=== PATIENT | male | born 1985 | race Caucasian/White ===

== ENCOUNTER 2016-10-04 03:30 | Emergency (ER) | payer SELFPAY ==
[~2016-10-04] VITALS: Ht 185.4 cm; Wt 105.0 kg
[~2016-10-04 03:30] MED LIST: Z.0.NO CURRENT MEDS
[2016-10-04 03:31] VITALS: BP 144/78; PULSE 102; RESP 20; TEMP 97.8; O2SAT 96
[2016-10-04] MEDS ORDERED: LIDOCAINE HCL 1% 20 ML VIAL INFIL ONE (03:45)
[2016-10-04] MEDS ORDERED: TETANUS/DIPHTHERIA TOXOID ADULT 0.5 ML VIAL IM ONE (03:45)
--- NOTE | 2016-10-04 03:52 | PD ---
HPI Chief Complaint: Laceration/Skin Injury Time Seen by Provider: 03:49 Travel History International Travel<30 days: No Contact w/Intl Traveler<30days: No Traveled to known affect area: No History of Present Illness HPI 30-year-old [id number] white male presents to emergency department with a laceration to his right mid dorsal forearm. He had tripped going into his house this evening after drinking. He put his hand through the window at the house. He sustained a 3 cm laceration. He states that he has some tickling his fingers diffusely. There is no focality. No weakness. He denies any other injuries. [facility] Past Medical History Medical History: Denies Significant Hx Tetanus Vaccination: > 5 Years Past Surgical History Surgical History: No Previous Surgery Eye Surgery: Yes (orbital) Social History Alcohol Use: Yes (WEEKENDS) Tobacco Use: Yes (2 PPD) Allergies-Medications (Allergen,Severity, Reaction): Coded Allergies: No Known Allergies (Unverified , 10/04/16) Uncoded Allergies: NKA (Allergy, Unknown, 03/14/03) Reported Meds & Prescriptions Reported Meds & Active Scripts Active No Active Prescriptions or Reported Medications Review of Systems Except as stated in HPI: all other systems reviewed are Neg Musculoskeletal: Positive: Pain, No: Myalgias, Arthralgias, Limited ROM, Weakness, Cramping, Edema Neurologic: Positive: Paresthesia, No: Coordination Problem Physical Exam Narrative GENERAL: Well-developed, well-nourished in no apparent distress. Nontoxic appearing. HEAD: Normocephalic, atraumatic. EYES: Pupils equal round and reactive. Extraocular motions intact. No scleral icterus. No injection or drainage. ENT: Nose clear. Throat without erythema, tonsillar hypertrophy or exudate. Uvula midline. Airway patent. NECK: Trachea midline. Supple, nontender, moves head freely. No central bony tenderness or spasm. CARDIOVASCULAR: Regular rate and rhythm without murmurs, gallops, or rubs. RESPIRATORY: Clear to auscultation. Breath sounds equal bilaterally. No wheezes , rales, or rhonchi. GASTROINTESTINAL: Abdomen soft, non-tender, nondistended. No hepato-splenomegaly , or palpable masses. No guarding. EXTREMITIES: No clubbing, cyanosis, or edema. No joint tenderness.There is a 3 cm laceration to the proximal dorsal surface of the right forearm. It does not appear to be a deep injury. I'm able to probe it with my gloved finger and it does not appear to go deeper than a centimeter. He complains of tingling in his fingers which is nondermatomal. He is able to extend his fingers, touch alternating fingers, extend and flex his wrist and he has no sensory changes on the dorsal surface of the hand. BACK: Nontender without deformity. No flank tenderness. NEUROLOGICAL: Awake, alert and oriented x 3 .Cranial nerves grossly intact. Motor and sensory grossly within normal limits. Normal speech. Data Data Last Documented VS Vital Signs Date Time Temp Pulse Resp B/P Pulse Ox O2 Delivery O2 Flow Rate FiO2 10/04/16 03:31 97.8 102 20 144/78 96 Orders Tetanus/Diphtheria Tox Adult (Tetanus/Di (10/04/16 03:45) Lidocaine 1% Inj (Xylocaine 1% Inj) (10/04/16 03:45) MDM Medical Decision Making Medical Screen Exam Complete: Yes Emergency Medical Condition: Yes Medical Record Reviewed: Yes Differential Diagnosis MDM: High Differential diagnoses: Fracture, sprain, strain, dislocation, contusion, neurovascular injury Narrative Course Patient's tetanus status updated. His wounds closed with rupal. Procedures Procedure Narrative LACERATION LOCATION: Left dorsal forearm LENGTH: 3 cm NUMBER OF STITCHES/RUPAL: 3 REPAIR: The area of the laceration was prepped with Betadine and sterilely draped. The laceration was infiltrated with 1% lidocaine. The wound was copiously irrigated and explored without evidence of foreign body, tendon injury or neurovascular injury. The wound was closed using rupal. This was a supple single layer repair. A sterile dressing was applied. The patient was advised to keep the dressing clean and dry. Patient tolerated the procedure well. Diagnosis Primary Impression: Laceration of right forearm Qualified Code: S51.811A - Laceration of right forearm, initial encounter Patient Instructions: General Instructions Additional Instructions: Rest. Elevation. Tylenol and Advil for pain. Daily wound care with soap, water, Neosporin. Sutures out in 10 days. Recheck right a primary care doctor in next 5-7 days. Return to the ER if any problems. Scripts No Active Prescriptions or Reported Meds Disposition: DISCHARGE HOME Condition: Stable Keshav Norris Oct 04, 2016 03:52
[2016-10-04] MEDS ORDERED: LIDOCAINE HCL 1% 30 ML VIAL ONE (03:56)
== END 2016-10-04 04:14 | disposition home or self-care (01) ==
LOC: NETRI 03:30
DX: S51.811A Laceration without foreign body of right forearm, initial encounter (principal); Z23 Encounter for immunization; W18.02XA Striking against glass with subsequent fall, initial encounter; W18.09XA Striking against other object with subsequent fall, initial encounter; Y93.9 Activity, unspecified; Y92.019 Unspecified place in single-family (private) house as the place of occurrence of the external cause; Y99.9 Unspecified external cause status
CPT/HCPCS: 12002; 90471; 90714